=== PATIENT | male | born 1960 | race African-American/Black ===

== ENCOUNTER 2016-12-29 16:28 | Inpatient (IN) | payer MEDICAID, OTHER ==
[~2016-12-29] VITALS: Ht 182.9 cm; Wt 91.6 kg
[2016-12-29 16:31] VITALS: BP 154/104; PULSE 96; RESP 18; TEMP 98.3; O2SAT 96
--- NOTE | 2016-12-29 18:15 | PD ---
HPI Chief Complaint: Psychiatric Symptoms Time Seen by Provider: 18:06 Travel History International Travel<30 days: No Contact w/Intl Traveler<30days: No Traveled to known affect area: No History of Present Illness HPI Patient is a 56-year-old male presenting to the emergency department voluntarily for suicidal homicidal ideations. Patient states he's been depressed, he reports worsening over the last 2 weeks. Patient has attempted suicide in the past, 2 years ago with attempted overdose on pills. Patient endorses alcohol, tobacco, marijuana, cocaine. He last used marijuana and cocaine on Wednesday. He denies any physical complaints at this time. Patient reports being discharged from [facility] recently and he stated that "they didn't do anything for him". [facility] Past Medical History Depression: Yes Glaucoma: Yes Hypertension: Yes Social History Alcohol Use: Yes (he reports drinking "lots".) Tobacco Use: Yes Substance Use: Yes (marijuana and cocaine) Allergies-Medications (Allergen,Severity, Reaction): Coded Allergies: No Known Allergies (Unverified , 12/29/16) Reported Meds & Prescriptions Reported Meds & Active Scripts Active Active Prescriptions or Reported Medications Unobtainable Review of Systems Except as stated in HPI: all other systems reviewed are Neg Psychiatric: Positive: Depression, Suicidal Ideations, Substance Abuse, Homicidal Ideation Physical Exam Narrative GENERAL: Well-developed, well-nourished, gentleman. SKIN: Warm and dry. HEAD: Atraumatic. Normocephalic. EYES: Pupils equal and round. No scleral icterus. No injection or drainage. ENT: No nasal bleeding or discharge. Mucous membranes pink and moist. NECK: Trachea midline. No JVD. CARDIOVASCULAR: Regular rate and rhythm. No murmur appreciated. RESPIRATORY: No accessory muscle use. Clear to auscultation. Breath sounds equal bilaterally. GASTROINTESTINAL: Abdomen soft, non-tender, nondistended. Hepatic and splenic margins not palpable. MUSCULOSKELETAL: No obvious deformities. No clubbing. No cyanosis. No edema. NEUROLOGICAL: Awake and alert. No obvious cranial nerve deficits. Motor grossly within normal limits. Normal speech. PSYCHIATRIC: Flat mood and affect; insight and judgment normal. Data Data Last Documented VS Vital Signs Date Time Temp Pulse Resp B/P Pulse Ox O2 Delivery O2 Flow Rate FiO2 12/29/16 16:31 98.3 96 18 154/104 96 Orders Complete Blood Count With Diff (12/29/16 17:56) Comprehensive Metabolic Panel (12/29/16 17:56) Psych Screen (12/29/16 17:56) Drug Screen, Random Urine (12/29/16 17:56) Labs Laboratory Tests Test 12/29/16 12/29/16 18:10 18:20 White Blood Count 8.0 TH/MM3 Red Blood Count 5.02 MIL/MM3 Hemoglobin 14.5 GM/DL Hematocrit 43.5 % Mean Corpuscular Volume 86.6 FL Mean Corpuscular Hemoglobin 28.9 PG Mean Corpuscular Hemoglobin 33.4 % Concent Red Cell Distribution Width 15.0 % Platelet Count 254 TH/MM3 Mean Platelet Volume 8.8 FL Neutrophils (%) (Auto) 52.6 % Lymphocytes (%) (Auto) 30.7 % Monocytes (%) (Auto) 12.2 % Eosinophils (%) (Auto) 3.2 % Basophils (%) (Auto) 1.3 % Neutrophils # (Auto) 4.2 TH/MM3 Lymphocytes # (Auto) 2.4 TH/MM3 Monocytes # (Auto) 1.0 TH/MM3 Eosinophils # (Auto) 0.3 TH/MM3 Basophils # (Auto) 0.1 TH/MM3 CBC Comment DIFF FINAL Differential Comment Sodium Level 138 MEQ/L Potassium Level 4.3 MEQ/L Chloride Level 102 MEQ/L Carbon Dioxide Level 27.9 MEQ/L Anion Gap 8 MEQ/L Blood Urea Nitrogen 14 MG/DL Creatinine 1.15 MG/DL Estimat Glomerular Filtration 79 ML/MIN Rate Random Glucose 93 MG/DL Calcium Level 9.4 MG/DL Total Bilirubin 0.4 MG/DL Aspartate Amino Transf 44 U/L (AST/SGOT) Alanine Aminotransferase 54 U/L (ALT/SGPT) Alkaline Phosphatase 70 U/L Total Protein 8.8 GM/DL Albumin 4.0 GM/DL Urine Opiates Screen NEG Urine Barbiturates Screen NEG Urine Amphetamines Screen NEG Urine Benzodiazepines Screen NEG Urine Cocaine Screen POS Urine Cannabinoids Screen NEG MDM Medical Decision Making Medical Screen Exam Complete: Yes Emergency Medical Condition: Yes Interpretation(s) Vital Signs Date Time Temp Pulse Resp B/P Pulse Ox O2 Delivery O2 Flow Rate FiO2 12/29/16 16:31 98.3 96 18 154/104 96 Differential Diagnosis Mood disorder versus substance abuse versus suicidal examination versus homicidal ideations versus psychosis versus delirium versus other Narrative Course Patient is a 56-year-old male presenting to emergency him voluntarily for suicidal or homicidal ideations and worsening depression over the last 2 weeks. Review suicide attempt 2 years ago by attempting to overdose. Labs as like screen ordered and pending. Workup initiated in triage, care of patient transferred to provider when a medical bed is available. Scripts Unable to Obtain Active Prescriptions or Reported Meds Linda Denny Dec 29, 2016 18:15
[2016-12-29 18:25] LABS: AUTOMATED NEUTROPHIL # 4.2 TH/MM3 (1.8-7.7); BASOPHIL # 0.1 TH/MM3 (0-0.2); BASOPHIL % 1.3 % (0.0-2.0); EOSINOPHIL # 0.3 TH/MM3 (0-0.4); EOSINOPHIL % 3.2 % (0.0-4.0); HEMATOCRIT 43.5 % (39.0-51.0); HEMO FLAGS DIFF FINAL; LYMPH % 30.7 % (9.0-44.0); LYMPHOCYTE # 2.4 TH/MM3 (1.0-4.8); MEAN CELL VOLUME 86.6 FL (80.0-100.0); MEAN CORPUSCULAR HEMOGLOBIN 28.9 PG (27.0-34.0); MEAN CORPUSCULAR HGB CONC 33.4 % (32.0-36.0); MONO % 12.2 % (0.0-8.0); NEUT % 52.6 % (16.0-70.0); PLATELET COUNT 254 TH/MM3 (150-450); RED BLOOD COUNT 5.02 MIL/MM3 (4.50-5.90)
[2016-12-29 18:36] LABS: ANION GAP 8 MEQ/L (5-15); AST (GOT) 44 U/L (15-37); BICARBONATE 27.9 MEQ/L (21.0-32.0); BLOOD UREA NITROGEN 14 MG/DL (7-18); CHLORIDE 102 MEQ/L (98-107); GLOMERULAR FILTRATION RATE 79 ML/MIN (>89); POTASSIUM 4.3 MEQ/L (3.5-5.1); SODIUM (NA) 138 MEQ/L (136-145)
[2016-12-29 18:40] LABS: ALKALINE PHOSPHATASE 70 U/L (45-117); ALT (GPT) 54 U/L (12-78); TOTAL BILIRUBIN ADULT 0.4 MG/DL (0.2-1.0)
[2016-12-29 18:57] LABS: AMPHETAMINE, URINE NEG (NEG); BARBITURATES, URINE NEG (NEG); COCAINE, URINE POS (NEG)
--- NOTE | 2016-12-29 19:12 | PD ---
Physical Exam Date Seen by Provider: Dec 29, 2016 Data Data Last Documented VS Vital Signs Date Time Temp Pulse Resp B/P Pulse Ox O2 Delivery O2 Flow Rate FiO2 12/29/16 16:31 98.3 96 18 154/104 96 Orders Complete Blood Count With Diff (12/29/16 17:56) Comprehensive Metabolic Panel (12/29/16 17:56) Psych Screen (12/29/16 17:56) Drug Screen, Random Urine (12/29/16 17:56) Labs Laboratory Tests Test 12/29/16 12/29/16 18:10 18:20 White Blood Count 8.0 TH/MM3 Red Blood Count 5.02 MIL/MM3 Hemoglobin 14.5 GM/DL Hematocrit 43.5 % Mean Corpuscular Volume 86.6 FL Mean Corpuscular Hemoglobin 28.9 PG Mean Corpuscular Hemoglobin 33.4 % Concent Red Cell Distribution Width 15.0 % Platelet Count 254 TH/MM3 Mean Platelet Volume 8.8 FL Neutrophils (%) (Auto) 52.6 % Lymphocytes (%) (Auto) 30.7 % Monocytes (%) (Auto) 12.2 % Eosinophils (%) (Auto) 3.2 % Basophils (%) (Auto) 1.3 % Neutrophils # (Auto) 4.2 TH/MM3 Lymphocytes # (Auto) 2.4 TH/MM3 Monocytes # (Auto) 1.0 TH/MM3 Eosinophils # (Auto) 0.3 TH/MM3 Basophils # (Auto) 0.1 TH/MM3 CBC Comment DIFF FINAL Differential Comment Sodium Level 138 MEQ/L Potassium Level 4.3 MEQ/L Chloride Level 102 MEQ/L Carbon Dioxide Level 27.9 MEQ/L Anion Gap 8 MEQ/L Blood Urea Nitrogen 14 MG/DL Creatinine 1.15 MG/DL Estimat Glomerular Filtration 79 ML/MIN Rate Random Glucose 93 MG/DL Calcium Level 9.4 MG/DL Total Bilirubin 0.4 MG/DL Aspartate Amino Transf 44 U/L (AST/SGOT) Alanine Aminotransferase 54 U/L (ALT/SGPT) Alkaline Phosphatase 70 U/L Total Protein 8.8 GM/DL Albumin 4.0 GM/DL Urine Opiates Screen NEG Urine Barbiturates Screen NEG Urine Amphetamines Screen NEG Urine Benzodiazepines Screen NEG Urine Cocaine Screen POS Urine Cannabinoids Screen NEG MDM Medical Record Reviewed: Yes Supervised Visit with LENNY: Yes Interpretation(s) Vital Signs Date Time Temp Pulse Resp B/P Pulse Ox O2 Delivery O2 Flow Rate FiO2 12/29/16 16:31 98.3 96 18 154/104 96 CBC & BMP Diagram 12/29/16 18:10 Differential Diagnosis drug abuse, suicidal ideations, depression Narrative Course I, Dr. Montiel, have reviewed the advance practice practitioner's documentation and am in agreement, met with the patient face to face, made the diagnosis, and the medical decision making was done by me. *My assessment and Findings: Depression with suicidal evaluations Patient is a 56-year-old male who was brought to the emergency room for evaluation of suicidal elevations. Patient reports that he has been having symptoms for the past 2 weeks, reports that he was seen at an outside hospital as well as [facility]. Patient reports he was recently discharged with no medications. Patient reports that he still feels suicidal and needs help. Patient contracts for safety at this time. Labs obtained,, will clear patient for psychiatric evaluation Diagnosis Primary Impression: Depression Qualified Code: F32.9 - Depression, unspecified depression type Additional Impression: Drug abuse and dependence Patient Instructions: General Instructions Additional Instruction: Stop using drugs Please follow-up with your primary care doctor as soon as possible Return to emergency room as needed Scripts Unable to Obtain Active Prescriptions or Reported Meds Annabelle Montiel DO Dec 29, 2016 19:12
[2016-12-29] MEDS ORDERED: AMLO10TA2 PO (19:33)
[2016-12-29] MEDS ORDERED: LISI-515 PO (19:33)
[2016-12-30 00:48] VITALS: BP 139/95; PULSE 77; RESP 18; O2SAT 95
[2016-12-30 02:09] VITALS: BP 128/79; PULSE 71; RESP 19; TEMP 98.7; O2SAT 97
[2016-12-30 06:00] VITALS: BP 133/76; PULSE 67; RESP 19; O2SAT 96
[2016-12-30 10:10] VITALS: BP 143/99; PULSE 77; RESP 18; O2SAT 97
--- NOTE | 2016-12-30 10:46 | PD ---
History of Present Illness Chief Complaint: Psychiatric Symptoms Time Seen by Provider: 10:05 Travel History International Travel<30 Days: No Contact w/Intl Traveler<30days: No Known affected area: No Legal Status Legal Status: Voluntary History of Present Illness: History of Present Illness Patient is a 56-year-old AA male with history of alcohol abuse as well as substance induced mood disorder who presents to the emergency department voluntarily for psychiatric evaluation. He reports both suicidal homicidal ideations. He states that he has been felling increasingly depressed x2 weeks coinciding with having stopped his psychiatric medications which include Abilify and Celexa. Prior to that he was at [facility] 4 weeks ago. He has been drinking alcohol as well as using cocaine . He sates that he was at [facility] yesterday and held overnight and that " they did nothing for me. I wanted to get back on my medication". Recent stressors include being homeless x 2 weeks . EMR reviewed. He presented to [facility] in September 2016 with reports of both suicidal and homicidal ideation and was transferred to another facility for treatment of his substance abuse as well as his depression. Patient is seen in [facility]. Awake, alert and oriented x4. Patient is maintaining basic hygiene. He is diaphoretic. No tremors noted. Speech is clear and logical. No hallucinations, no delusions and no paranoia. Affect and mood are dysphoric. He is vague regarding specific symptoms and states " I have been going downhill for the past 2 weeks, isolating, sleeping a lot, shutting out everyone". Endorses feeling hopeless and helpless. He does not report suicidal plan at this time but talks about " having given up". Insight is limited. Poor judgement. Current toxicology is positive for cocaine. Endorses drinking every day. No BAL is available. [facility] Past Medical History Depression: Yes Glaucoma: Yes Hypertension: Yes Immunizations Current: Yes Tetanus Vaccination: > 5 Years Influenza Vaccination: Yes Psychiatric History Psychiatric History Hx Psychiatric Treatment: [facility] 12/28 to 2016. [facility] Nov 2016. [facility]. History of Inpatient Treatment: Yes Guns or firearms in home: No Social History Single male. Completed high school. Homeless. On disability Hx Alcohol Use: Yes (he reports drinking "lots".) Hx Tobacco Use: Yes Hx Substance Use: Yes (marijuana and cocaine) Substance Use Type: Alcohol Hx of Substance Use Treatment: Yes ([facility] in [facility] in 1999. ) Family Psychiatric History None reported. Allergies-Medications (Allergen,Severity, Reaction): Coded Allergies: No Known Allergies (Unverified , 12/29/16) Reported Meds & Prescriptions Reported Meds & Active Scripts Active Reported Amlodipine (Amlodipine Besylate) 10 Mg Tab 10 Mg PO DAILY Lisinopril 20 Mg Tab 20 Mg PO DAILY Review of Systems Except as stated in HPI: all other systems reviewed are Neg Psychiatric: COMPLAINS OF: Depression, Suicidal Ideation Exam Alert: Yes [place]: Person (ox4) Mood: Angry, Depressed Affect: Other (dysphoric) Speech: Clear, Logical Eye Contact: Indirect Memory Intact: Comment (no impairment) Hallucinations: Other (negative) Delusions: No Suicidal: Plan (no plan), Ideation Homicidal: Ideation (thoughts on admission) Insight/Judgement poor. poor MDM Medical Decision Making Medical Record Reviewed: Yes Assessment/Plan 56 year old male with history of alcohol and cocaine abuse who presents under a voluntary status for reports of both suicidal and homicidal ideation. He was released from [facility] yesterday and claims " they did nothing for me". He reports that he has been out of medication as well as drinking every day and wants treatment for both his ETOH use as well as for his psychiatric presentation. he is vague regarding symptomatology and I suspect that there is a strong component of symptom exaggeration if not malingering for the purpose of obtaining alf. Nevertheless due to the fact that he has been persistent in his presenting himself seeking treatment I will,out of caution, recommend inpatient psychiatric treatment for further evaluation, stabilization and to restart psychiatric medication. . Orders Complete Blood Count With Diff (12/29/16 17:56) Comprehensive Metabolic Panel (12/29/16 17:56) Psych Screen (12/29/16 17:56) Drug Screen, Random Urine (12/29/16 17:56) Diet Regular Basic (12/30/16 Breakfast) Diet Regular Basic (12/30/16 Lunch) Results Vital Signs Date Time Temp Pulse Resp B/P Pulse Ox O2 Delivery O2 Flow Rate FiO2 12/30/16 10:10 77 18 143/99 97 Room Air 12/30/16 06:00 67 19 133/76 96 Room Air 12/30/16 02:09 98.7 71 19 128/79 97 Room Air 12/30/16 00:48 77 18 139/95 95 Room Air 12/29/16 16:31 98.3 96 18 154/104 96 Laboratory Tests Test 12/29/16 12/29/16 18:10 18:20 White Blood Count 8.0 Red Blood Count 5.02 Hemoglobin 14.5 Hematocrit 43.5 Mean Corpuscular Volume 86.6 Mean Corpuscular Hemoglobin 28.9 Mean Corpuscular Hemoglobin 33.4 Concent Red Cell Distribution Width 15.0 Platelet Count 254 Mean Platelet Volume 8.8 Neutrophils (%) (Auto) 52.6 Lymphocytes (%) (Auto) 30.7 Monocytes (%) (Auto) 12.2 Eosinophils (%) (Auto) 3.2 Basophils (%) (Auto) 1.3 Neutrophils # (Auto) 4.2 Lymphocytes # (Auto) 2.4 Monocytes # (Auto) 1.0 Eosinophils # (Auto) 0.3 Basophils # (Auto) 0.1 CBC Comment DIFF FINAL Differential Comment Sodium Level 138 Potassium Level 4.3 Chloride Level 102 Carbon Dioxide Level 27.9 Anion Gap 8 Blood Urea Nitrogen 14 Creatinine 1.15 Estimat Glomerular Filtration 79 Rate Random Glucose 93 Calcium Level 9.4 Total Bilirubin 0.4 Aspartate Amino Transf 44 (AST/SGOT) Alanine Aminotransferase 54 (ALT/SGPT) Alkaline Phosphatase 70 Total Protein 8.8 Albumin 4.0 Urine Opiates Screen NEG Urine Barbiturates Screen NEG Urine Amphetamines Screen NEG Urine Benzodiazepines Screen NEG Urine Cocaine Screen POS Urine Cannabinoids Screen NEG Diagnosis Primary Impression: Drug abuse and dependence Additional Impression: Substance induced mood disorder Admitting Information Admitting Physician Requests: Admit (Dr. Matos) Patient Instructions: General Instructions Additional Instructions: Stop using drugs Please follow-up with your primary care doctor as soon as possible Return to emergency room as needed Problem Qualifiers Mindi Kennedy Dec 30, 2016 10:46
[2016-12-30] MEDS ORDERED: LORazepam 2 MG/ML VIAL IV PUSH PRN ×4 (11:00)
[2016-12-30] MEDS ORDERED: LORazepam 1 MG TAB PO PRN (11:00)
[2016-12-30] MEDS ORDERED: FLUMAZENIL 0.5 MG/5 ML VIAL IV PUSH PRN (11:00)
[2016-12-30] MEDS ORDERED: LORazepam 2 MG TAB PO PRN (11:00)
[2016-12-30] MEDS ORDERED: MAGNESIUM HYDROXIDE SUSP 30 ML CUP PO PRN (11:00)
[2016-12-30] MEDS ORDERED: ACETAMINOPHEN 325 MG TAB PO PRN (11:00)
[2016-12-30] MEDS ORDERED: ALUMINUM/MAGNESIUM/SIMETH 30 ML CUP PO PRN (11:00)
[2016-12-30 13:55] VITALS: BP 140/92; PULSE 69; RESP 18; TEMP 98.4
[2016-12-30 18:37] VITALS: BP 111/62; PULSE 73; RESP 18; TEMP 98.2; O2SAT 98
[2016-12-31 05:48] VITALS: BP 107/69; PULSE 81; RESP 16; TEMP 98.3; O2SAT 95
[2016-12-31 06:41] LABS: ANION GAP 8 MEQ/L (5-15); BLOOD UREA NITROGEN 10 MG/DL (7-18); CHLORIDE 102 MEQ/L (98-107); GLOMERULAR FILTRATION RATE 93 ML/MIN (>89); POTASSIUM 3.7 MEQ/L (3.5-5.1); SODIUM (NA) 139 MEQ/L (136-145)
[2016-12-31 06:43] LABS: HDL CHOLESTEROL 34.1 MG/DL (40.0-60.0); LDL CHOLESTEROL 107 MG/DL (0-99)
[2016-12-31] MEDS: LISINOPRIL 20 MG TAB PO SCH (09:00)
--- NOTE | 2016-12-31 09:18 | HHI.HP ---
Provisional Diagnosis Admission Date Dec 30, 2016 at 10:50 Alder I. History of major depression chronic recurrent with suicidal ideation. History of alcohol and substance abuse. Alder II. Passive-dependent trait Alder III. Please see the emergency room evaluation Alder IV. Moderate stress difficulty coping Alder V. GAF of 45 Certification of Person's Competence To Provide Express and Informed Consent I have personally examined Ilan De La Torre , a person being served at [facility] on, Dec 31, 2016 09:09. Express and informed consent means consent voluntarily given in writing, by a competent person, after sufficient explanation and disclosure of the subject matter involved to enable the person to make a knowing and willful decision without any element of force, fraud, deceit, duress, or other form of constraint or coercion. This person is 18 years of age or older, is not now known to be incompetent to consent to treatment with a guardian advocate, and does not have a health care surrogate or proxy currently making medical treatment decisions. I have found this person to be one of the following: [x] Competent to provide express and informed consent, as defined above, for voluntary admission to this facility and is competent to provide express and informed consent for treatment. He/she has the consistent capacity to make well reasoned, willful, and knowing decisions concerning his or her medical or mental health treatment. The person fully and consistently understands the purpose of the admission for examination/placement and is fully capable of personally exercising all rights assured [place] [] Incompetent to provide express and informed consent to voluntary admission, and this is incompetent to provide express and informed consent to treatment. The person must be transferred to involuntary status and a petition for a guardian advocate filed with the Circuit Court. [] Refusing to provide express and informed consent to voluntary admission but is competent to provide express and informed consent for treatment. The person must be discharged or transferred to involuntary status. Form shall be completed within 24 hours of a person's arrival at the receiving facility and filed in the clinical record of each person: 1. Admitted on a voluntary basis 2. Permitted to provide express and informed consent to his/her own treatment 3. Allowed to transfer from involuntary to voluntary status 4. Prior to permitting a person to consent to his or her own treatment after having been previously found incompetent to consent to treatment. History of Present Illness Capacity: Has Capacity HPI This is a 56-year-old black male who was admitted voluntarily for increasing symptoms of feeling depressed for the past 2 weeks. And having suicidal ideation. He feels isolated more depressed hopeless helpless has been sleeping awaiting to talk to anybody is also started to abuses alcohol and cocaine. Patient claimed that he has been abusing it for the past 30+ years. He denied any active auditory or visual hallucinations he stays with his nephew. No behavior or management problem reported he wants some help he has been through some drug rehabilitation Center in the past but has been having some difficulty controlling it. He came voluntarily and willing to take the medication and get some help Review of Systems Except as stated in HPI: all other systems reviewed are Neg Respiratory: COMPLAINS OF: Cough, Shortness of breath Psychiatric: COMPLAINS OF: Mood changes, Depression, Suicidal Ideation Past Psych History Psychological trauma history Patient denied any physical verbal or sexual abuse growing up Violence risk - others (6 mos) Patient denies Violence risk - self (6 mos) Patient claimed that he has been thinking about suicide for the last couple weeks but hasn't had any plan feels safe in the hospital Substance Abuse History Drugs/Alcohol past 12 months Patient admitted to abusing alcohol and cocaine for the past couple weeks Past Family Social History Coded Allergies: No Known Allergies (Unverified , 12/29/16) Reported Medications Amlodipine 10 Mg Tab10 Mg PO DAILY #30 TAB Ref 0 12/29/16 Lisinopril 20 Mg Tab20 Mg PO DAILY #30 TAB Ref 0 12/29/16 Current Medications Medications (Trade) Dose Ordered Sig/Fredis Route Start Time Stop Time Status Last Admin (Tylenol) 650 mg Q4H PRN PO 12/30/16 11:00 (Milk Of Magnesia Liq) 30 ml DAILY PRN PO 12/30/16 11:00 (Mag-Al Plus Susp Liq) 30 ml Q6H PRN PO 12/30/16 11:00 12/30/16 11:20 (Norvasc) 10 mg DAILY PO 12/31/16 09:00 (Prinivil) 20 mg DAILY PO 12/31/16 09:00 (Ativan) 1 mg Q4H PRN PO 12/30/16 11:00 (Ativan Inj) 1 mg Q4H PRN IV PUSH 12/30/16 11:00 (Ativan) 2 mg Q2H PRN PO 12/30/16 11:00 (Ativan Inj) 2 mg Q2H PRN IV PUSH 12/30/16 11:00 (Ativan Inj) 2 mg Q1H PRN IV PUSH 12/30/16 11:00 (Ativan Inj) 2 mg Q15M PRN IV PUSH 12/30/16 11:00 (Romazicon Inj) 0.2 mg Q1M PRN IV PUSH 12/30/16 11:00 Family History Positive for depression Social History Patient was born in [place]. He has 2 brothers and 3 sisters. His parents . He was close to his parents. His childhood was described as okay he denied any physical verbal or sexual abuse growing up. He did finish high school. And started to work he worked for couple of years for the [employer]. He did get into some trouble with the law and has been in [facility] several times. He admitted to alcohol and cocaine abuse for the past several years. He has been on Abilify and Celexa. But his not regular rate and outpatient follow-up been compliant in taking medication Patient's Strengths (min. 2) Patient is cooperative sign voluntary and wanted to get some help and willing to take the medication Physical Exam Please see the emergency room evaluation patient denied any physical complaints except some cough and feels like he is feeling weak we will have the LMD take a look at him his vital signs are stable Vital Signs Vital Signs Date Time Temp Pulse Resp B/P Pulse Ox O2 Delivery O2 Flow Rate FiO2 12/31/16 05:48 98.3 81 16 107/69 95 12/30/16 10:10 Room Air Mental Status Examination This is a 56-year-old black male who looks about the same as his stated age was alert oriented 2 cooperative casually dressed his speech was slow without any evidence of loose associations or flights of ideas or pressure speech his mood was described as feeling depressed and frustrated hopeless helpless and passively thinking about suicide prior to coming to the hospital and wanting some help. He also admitted to abusing alcohol and cocaine. He denied any active auditory or visual hallucinations denied any paranoia at this time he seems to be of low average intelligence with poor concentration for recent memory his insight is fair and his judgment seems to be okay on hypothetical situation his concentration is mildly impaired and his fund of knowledge is average his gait is normal his language is normal Assessment & Plan Problem List: (1) Depression ICD Code: F32.9 (2) Drug abuse and dependence ICD Code: F19.20 Assessment & Plan Estimated LOS: 5 days. This is a 56-year-old black male who was admitted voluntarily for help because he was feeling increasingly depressed hopeless helpless and suicidal willing to take the medication.. Admitted to observe evaluate and treat. We'll start him on antidepressant Wellbutrin. And continue with Abilify. He will participate in all the therapeutic activity on the floor. Request social insurance administrator to assist in aftercare and discharge planning. Side effect another alternative treatment were explained to the patient. Vital signs every shift. Request HC Surrog/Guard Advoc?: No Problem Qualifiers (1) Depression: Wilian Roldan MD Dec 31, 2016 09:18
[2016-12-31] MEDS: ARIPiprazole 5 MG TAB PO SCH ×2 (10:21→20:03)
[2016-12-31] MEDS: buPROPion HCL 150 MG SUSTAINED RELEASE TAB PO SCH ×2 (10:21→20:03)
[2016-12-31 12:24] LABS: AUTOMATED NEUTROPHIL # 2.2 TH/MM3 (1.8-7.7); BASOPHIL # 0.3 TH/MM3 (0-0.2); BASOPHIL % 4.7 % (0.0-2.0); EOSINOPHIL # 0.4 TH/MM3 (0-0.4); EOSINOPHIL % 6.1 % (0.0-4.0); HEMATOCRIT 41.8 % (39.0-51.0); HEMO FLAGS DIFF FINAL; LYMPH % 39.5 % (9.0-44.0); LYMPHOCYTE # 2.4 TH/MM3 (1.0-4.8); MEAN CORPUSCULAR HEMOGLOBIN 28.3 PG (27.0-34.0); MEAN CORPUSCULAR HGB CONC 32.5 % (32.0-36.0); MONO % 13.4 % (0.0-8.0); NEUT % 36.3 % (16.0-70.0); PLATELET COUNT 270 TH/MM3 (150-450); RED BLOOD COUNT 4.81 MIL/MM3 (4.50-5.90); RED CELL DISTRIBUTION WIDTH 15.2 % (11.6-17.2); WHITE BLOOD COUNT 6.1 TH/MM3 (4.0-11.0)
[2016-12-31 12:43] LABS: MAGNESIUM 2.2 MG/DL (1.5-2.5)
[2016-12-31 14:35] LABS: HEMOGLOBIN A1a 1.2 %; HEMOGLOBIN A1b 1.5 %; HEMOGLOBIN Ao 84.8 %; HEMOGLOBIN LA1C 1.9 %; HEMOGLOBIN P3 3.7 %
--- NOTE | 2016-12-31 15:10 | RADRPT ---
EXAM DATE/TIME: 12/31/2016 14:28 [facility] COMPARISON: No previous studies available for comparison. INDICATIONS : Cough. MEDICAL HISTORY : None. SURGICAL HISTORY : None. ENCOUNTER: Initial ACUITY: 1 day PAIN SCORE: 0/10 LOCATION: Bilateral chest FINDINGS: Portable AP view of the chest demonstrates a normal-sized cardiac silhouette. No effusion, consolidat ion, or pneumothorax is visualized. The bones and soft tissues demonstrate no acute abnormality. CONCLUSION: No acute cardiopulmonary abnormality is identified. Soham Aguilar MD on December 31, 2016 at 15:08 Board Certified Radiologist. This report was verified electronically.
[2016-12-31] MEDS ORDERED: RESP: ALBUTEROL 2.5 MG/IPRATROPIUM 0.5 MG NEB (PRN) NEB (15:30)
--- NOTE | 2016-12-31 15:41 | PD.CONS ---
HPI Service [facility] Consult Requested By Psychiatric team Reason for Consult Cough and flulike symptoms Primary Care Physician Non-Staff Diagnoses: History of Present Illness This is a 56-year-old male patient with past medical history which includes glaucoma hypertension and stomach ulcers. Patient is currently an inpatient psychiatric center we have been consulted for cough and flulike symptoms. Patient reports he's had a productive cough for approximately 4 days reports it is associated with fevers and chills although patient has been afebrile since hospitalization. Patient also reports nasal congestion. Patient denies shortness of breath chest pain nausea vomiting diarrhea constipation. Patient is also concerned that he has not been getting his eyedrops for glaucoma. Patient denies visual changes. Patient offers no other complaints at this time. Review of Systems Except as stated in HPI: all other systems reviewed are Neg Past Family Social History Allergies: Coded Allergies: No Known Allergies (Unverified , 12/29/16) Past Medical History glaucoma hypertension and stomach ulcers Past Surgical History Index trigger finger right hand partially amputated Reported Medications Amlodipine (Amlodipine Besylate) 10 Mg Tab 10 Mg PO DAILY Lisinopril 20 Mg Tab 20 Mg PO DAILY DorzolamideTemodal one drop each eye twice a day Active Ordered Medications Current Medications Medications (Trade) Dose Ordered Sig/Fredis Route Start Time Stop Time Status Last Admin (Tylenol) 650 mg Q4H PRN PO 12/30/16 11:00 12/31/16 10:03 (Milk Of Magnesia Liq) 30 ml DAILY PRN PO 12/30/16 11:00 (Mag-Al Plus Susp Liq) 30 ml Q6H PRN PO 12/30/16 11:00 12/30/16 11:20 (Norvasc) 10 mg DAILY PO 12/31/16 09:00 (Prinivil) 20 mg DAILY PO 12/31/16 09:00 (Ativan) 1 mg Q4H PRN PO 12/30/16 11:00 12/31/16 10:11 (Ativan Inj) 1 mg Q4H PRN IV PUSH 12/30/16 11:00 (Ativan) 2 mg Q2H PRN PO 12/30/16 11:00 (Ativan Inj) 2 mg Q2H PRN IV PUSH 12/30/16 11:00 (Ativan Inj) 2 mg Q1H PRN IV PUSH 12/30/16 11:00 (Ativan Inj) 2 mg Q15M PRN IV PUSH 12/30/16 11:00 (Romazicon Inj) 0.2 mg Q1M PRN IV PUSH 12/30/16 11:00 (Wellbutrin Sr) 150 mg BID PO 12/31/16 09:30 12/31/16 10:21 (Abilify) 5 mg BID PO 12/31/16 09:30 12/31/16 10:21 (Lipitor) 10 mg HS PO 12/31/16 21:00 Family History Denies family medical history for diabetes hypertension heart disease or cancer Social History Patient reports he drinks," lots," daily mostly beer patient's last drink was 12/25/2016 Patient reports he smokes 5-6 cigarettes per day Urine toxicology screen on admission positive for cocaine Physical Exam Vital Signs Vital Signs Date Time Temp Pulse Resp B/P Pulse Ox O2 Delivery O2 Flow Rate FiO2 12/31/16 05:48 98.3 81 16 107/69 95 12/30/16 18:37 98.2 73 18 111/62 98 Physical Exam GENERAL: This is a well-nourished, well-developed patient, in no apparent distress. SKIN: No rashes, ecchymoses or lesions. Cool and dry. HEAD: Atraumatic. Normocephalic. No temporal or scalp tenderness. EYES: Extraocular motions intact. No scleral icterus. No injection or drainage. CARDIOVASCULAR: Regular rate and rhythm without murmurs, gallops, or rubs. RESPIRATORY: Clear to auscultation. Breath sounds equal bilaterally. No wheezes , rales, or rhonchi. GASTROINTESTINAL: Abdomen soft, non-tender, nondistended. MUSCULOSKELETAL: Extremities without clubbing, cyanosis, or edema. No joint tenderness, effusion, or edema noted. No calf tenderness. Negative Homans sign bilaterally. NEUROLOGICAL: Awake and alert. No focal deficits appreciated. Motor and sensory grossly within normal limits. Five out of 5 muscle strength in all muscle groups. Normal speech. No visual tremors Laboratory Laboratory Tests Test 12/31/16 05:28 White Blood Count 6.1 Red Blood Count 4.81 Hemoglobin 13.6 Hematocrit 41.8 Mean Corpuscular Volume 87.0 Mean Corpuscular Hemoglobin 28.3 Mean Corpuscular Hemoglobin 32.5 Concent Red Cell Distribution Width 15.2 Platelet Count 270 Mean Platelet Volume 8.8 Neutrophils (%) (Auto) 36.3 Lymphocytes (%) (Auto) 39.5 Monocytes (%) (Auto) 13.4 Eosinophils (%) (Auto) 6.1 Basophils (%) (Auto) 4.7 Neutrophils # (Auto) 2.2 Lymphocytes # (Auto) 2.4 Monocytes # (Auto) 0.8 Eosinophils # (Auto) 0.4 Basophils # (Auto) 0.3 CBC Comment DIFF FINAL Differential Comment Sodium Level 139 Potassium Level 3.7 Chloride Level 102 Carbon Dioxide Level 29.0 Anion Gap 8 Blood Urea Nitrogen 10 Creatinine 1.00 Estimat Glomerular Filtration 93 Rate Random Glucose 91 Hemoglobin A1c 5.8 Calcium Level 8.8 Phosphorus Level 3.1 Magnesium Level 2.2 Triglycerides Level 163 Cholesterol Level 174 LDL Cholesterol 107 HDL Cholesterol 34.1 Cholesterol/HDL Ratio 5.10 Result Diagram: 12/31/16 0528 12/31/16 0528 Assessment and Plan Assessment and Plan This is a 56-year-old male patient with past medical history which includes glaucoma hypertension and stomach ulcers. Patient is currently an inpatient psychiatric center we have been consulted for cough and flulike symptoms. Patient reports he's had a productive cough for approximately 4 days. Depression management per psychiatric team Polysubstance abuse patient counseled- encourage to abstain Nicotine patch provided [facility] protocol Cough chest x-ray reviewed by myself as well as Dr. Levine reveals no acute cardiopulmonary process Sputum culture if patient able Influenza test ordered Roxi Corey-patient reports he has taken Robitussin the past and this upsets his stomach Duo nebs as needed for shortness of breath or wheezing CBC rechecked white blood cell count 6.7-patient has also been afebrile since admission Hypertension continue lisinopril and Norvasc monitor for hypotension may need to titrate down medications Glaucoma continue dorzolamide-timolol 1 drop each eye daily Recommend patient follow-up with outpatient ophthalmology after discharge Hyperlipidemia patient's ASCVD score 16% start Lipitor 10 mg - patient will need outpatient follow-up with PCP for monitoring of liver function as well as lipids DVT prophylaxis patient is ambulatory and low risk Thank you for the consultation and for allowing us to participate in the care of this patient Discussed plan of care with patient and nursing Written by Sandra Zavala, acting as scribe for Dr. Levine on 12/31/16 at 15:39. Attending Statement All or portions of this note were transcribed by scribe Sandra Zavala. I , Dr. Julian Mann personally performed the history, physical exam, and medical decision making; and confirmed the accuracy of the information in the transcribed note. Authenticated by Dr. Julian Mann on 01/04/17 at 00:08. Sadnra Zavala Dec 31, 2016 15:40 Julian Gibbs MD Jan 04, 2017 00:09
[2016-12-31] MEDS ORDERED: LORazepam 2 MG TAB PO PRN (19:00)
[2016-12-31] MEDS ORDERED: FLUMAZENIL 0.5 MG/5 ML VIAL IV PUSH PRN (19:00)
[2016-12-31] MEDS ORDERED: LORazepam 1 MG TAB PO PRN (19:00)
[2016-12-31] MEDS ORDERED: LORazepam 2 MG/ML VIAL IV PUSH PRN ×4 (19:00)
[2016-12-31] MEDS: ATORVASTATIN 10 MG TAB PO SCH (20:03)
[2016-12-31] MEDS: DORZOLAMIDE/TIMOLOL OPTH SOLN 10 ML BTL EACH EYE SCH (20:03)
[2016-12-31 20:04] VITALS: BP 107/69; PULSE 83; RESP 16; TEMP 97.1; O2SAT 95
[2016-12-31] MEDS: BENZONATATE 100 MG CAP PO PRN (20:04)
[2017-01-01 05:38] VITALS: BP 126/78; PULSE 63; RESP 18; TEMP 98.1; O2SAT 97
[2017-01-01] MEDS: DORZOLAMIDE/TIMOLOL OPTH SOLN 10 ML BTL EACH EYE SCH ×2 (09:00→20:40)
[2017-01-01] MEDS: THIAMINE HCL 100 MG TAB PO SCH (09:36)
[2017-01-01] MEDS: buPROPion HCL 150 MG SUSTAINED RELEASE TAB PO SCH ×2 (09:36→20:40)
[2017-01-01] MEDS: FOLIC ACID 1 MG TAB PO SCH (09:36)
[2017-01-01] MEDS: LISINOPRIL 20 MG TAB PO SCH (09:36)
[2017-01-01] MEDS: ARIPiprazole 5 MG TAB PO SCH ×2 (09:36→20:40)
--- NOTE | 2017-01-01 10:16 | HHI.PYPN ---
Subjective Remarks Patient was seen and discussed with the residential treatment staff. Patient claimed that he has not been feeling well and tends to isolate himself and keeps to himself. He was encouraged to participate in all the therapeutic activity on the floor. He also complains of having cough. No behavior or management problem reported. Denied any active suicidal ideation intentions or plan. No side effects were complained from the medication. Continue with the same treatment Review of Systems Except as stated in HPI: all other systems reviewed are Neg Psychiatric: COMPLAINS OF: Mood changes, Depression Objective Alert: Yes [place]: Person (ox4) Mood: Anxious, Depressed, Other (feels frustrated) Affect: Other (dysphoric) Memory Intact: Comment (no impairment) Hallucinations: Other (negative) Delusions: No Delusion Type: Other Suicidal: Plan (no plan), Ideation (patient denies any suicidal ideation intentions or plan) Homicidal: Ideation (denies at this time) Insight/Judgement Fair to limited Vitals/IOs Vital Signs Date Time Temp Pulse Resp B/P Pulse Ox O2 Delivery O2 Flow Rate FiO2 01/01/17 05:38 98.1 63 18 126/78 97 12/30/16 10:10 Room Air Assessment & Plan Problem List: (1) Depression ICD Code: F32.9 (2) Drug abuse and dependence ICD Code: F19.20 Assessment & Plan Estimated LOS: days Justification for Cont. Inpt. Monitoring of the medication and risk of decompensation Request HC Surrog/Guard Advoc?: No Problem Qualifiers (1) Depression: Wilian Roldan MD Jan 01, 2017 10:16
[2017-01-01 18:31] VITALS: BP 107/72; PULSE 73; RESP 18; TEMP 98.2; O2SAT 95
[2017-01-01] MEDS: ATORVASTATIN 10 MG TAB PO SCH (20:40)
[2017-01-02 06:09] VITALS: BP 113/73; PULSE 94; RESP 18; TEMP 98.2; O2SAT 97
[2017-01-02] MEDS: FOLIC ACID 1 MG TAB PO SCH (09:17)
[2017-01-02] MEDS: THIAMINE HCL 100 MG TAB PO SCH (09:17)
[2017-01-02] MEDS: buPROPion HCL 150 MG SUSTAINED RELEASE TAB PO SCH ×2 (09:17→20:51)
[2017-01-02] MEDS: ARIPiprazole 5 MG TAB PO SCH ×2 (09:17→20:51)
[2017-01-02] MEDS: LISINOPRIL 20 MG TAB PO SCH (09:17)
[2017-01-02] MEDS: DORZOLAMIDE/TIMOLOL OPTH SOLN 10 ML BTL EACH EYE SCH ×2 (09:18→20:50)
--- NOTE | 2017-01-02 12:37 | HHI.PYPN ---
Subjective Remarks Patient was seen and case discussed with nursing. Patient describes depressed mood and affect is blunted. Describes suicidal thoughts saying I would be better off . Denies any intent or plan. Poor insight. Minimizing his drug use. He is eating well, largely seclusive to self. Denies psychotic symptoms Objective Alert: Yes [place]: Person (ox4), Place Mood: Depressed Affect: Blunted Memory Intact: Comment (no impairment) Hallucinations: Other (negative) Delusions: No Delusion Type: Other Suicidal: Plan (no plan), Ideation (patient denies any suicidal ideation intentions or plan) Homicidal: Ideation (denies at this time) Insight/Judgement Poor Vitals/IOs Vital Signs Date Time Temp Pulse Resp B/P Pulse Ox O2 Delivery O2 Flow Rate FiO2 01/02/17 06:09 98.2 94 18 113/73 97 12/30/16 10:10 Room Air Assessment & Plan Problem List: (1) Depression ICD Code: F32.9 (2) Drug abuse and dependence ICD Code: F19.20 Assessment & Plan Continue current treatment plan Justification for Cont. Inpt. Patient will decompensate in a less restrictive setting Request HC Surrog/Guard Advoc?: No Problem Qualifiers (1) Depression: Varun Meyer DO Jan 02, 2017 12:37
--- NOTE | 2017-01-02 14:36 | HHI.PR ---
Subjective Remarks Follow-up: Cough, hypertension, hyperlipidemia Patient seen resting in bed in inpatient psychiatric center. Patient appears to be in no acute distress. Patient reports he continues to have cough which is not as bad as it was prior denies fevers chills nausea vomiting diarrhea constipation. Objective Vitals Vital Signs Date Time Temp Pulse Resp B/P Pulse Ox O2 Delivery O2 Flow Rate FiO2 01/02/17 06:09 98.2 94 18 113/73 97 01/01/17 18:31 98.2 73 18 107/72 95 Result Diagram: 12/31/16 0528 12/31/16 0528 Imaging Last Impressions Chest X-Ray 12/31/16 0000 Signed Impressions: Service Date/Time: December 14:28 - CONCLUSION: No acute cardiopulmonary abnormality is identified. Soham Aguilar MD Objective Remarks GENERAL: This is a well-nourished, well-developed patient, in no apparent distress. SKIN: No rashes, ecchymoses or lesions. Cool and dry. HEAD: Atraumatic. Normocephalic. No temporal or scalp tenderness. EYES: Extraocular motions intact. No scleral icterus. No injection or drainage. CARDIOVASCULAR: Regular rate and rhythm without murmurs, gallops, or rubs. RESPIRATORY: Clear to auscultation. Breath sounds equal bilaterally. No wheezes , rales, or rhonchi. GASTROINTESTINAL: Abdomen soft, non-tender, nondistended. MUSCULOSKELETAL: Extremities without clubbing, cyanosis, or edema. No joint tenderness, effusion, or edema noted. No calf tenderness. Negative Homans sign bilaterally. NEUROLOGICAL: Awake and alert. No focal deficits appreciated. Motor and sensory grossly within normal limits. Five out of 5 muscle strength in all muscle groups. Normal speech. No visual tremors A/P Assessment and Plan This is a 56-year-old male patient with past medical history which includes glaucoma hypertension and stomach ulcers. Patient is currently an inpatient psychiatric center we have been consulted for cough and flulike symptoms. Patient reports he's had a productive cough for approximately 4 days. Depression management per psychiatric team Polysubstance abuse patient counseled- encourage to abstain Nicotine patch provided [facility] protocol Cough chest x-ray reviewed by myself as well as Dr. Levine reveals no acute cardiopulmonary process Sputum culture if patient able Influenza test ordered Roxi Corey-patient reports he has taken Robitussin the past and this upsets his stomach Lozenges as needed Duo nebs as needed for shortness of breath or wheezing CBC rechecked white blood cell count 6.7- afebrile Hypertension continue lisinopril and Norvasc monitor for hypotension may need to titrate down medications Glaucoma continue dorzolamide-timolol 1 drop each eye daily Recommend patient follow-up with outpatient ophthalmology after discharge Hyperlipidemia patient's ASCVD score 16% Lipitor 10 mg - patient will need outpatient follow-up with PCP for monitoring of liver function as well as lipids DVT prophylaxis patient is ambulatory and low risk Patient appears medically stable will sign off. Patient's condition changes or further assistance is needed please reconsult. Discussed plan of care with patient and nursing Written by Sandra Perkins, acting as scribe for Dr. Levine on 01/02/17 at 14:36. Attending Statement All or portions of this note were transcribed by scribe Sandra perkins. I, Dr. Julian Mann personally performed the history, physical exam, and medical decision making; and confirmed the accuracy of the information in the transcribed note. Authenticated by Dr. Julian Mann on 01/02/17 at 15:30. Sandra Perkins Jan 02, 2017 14:36 Julian Gibbs MD Jan 12, 2017 13:13
[2017-01-02] MEDS ORDERED: MENTHOL LOZENGE BUCCAL PRN (16:00)
[2017-01-02 18:00] VITALS: PULSE 56; RESP 18; TEMP 98.7; O2SAT 97
[2017-01-02] MEDS: ATORVASTATIN 10 MG TAB PO SCH (20:51)
[2017-01-02] MEDS: BENZONATATE 100 MG CAP PO PRN (21:13)
[2017-01-03 06:31] VITALS: BP 115/76; PULSE 60; RESP 18; TEMP 98.3; O2SAT 99
[2017-01-03] MEDS: DORZOLAMIDE/TIMOLOL OPTH SOLN 10 ML BTL EACH EYE SCH ×2 (09:00→20:53)
[2017-01-03] MEDS: amLODIPine BESYLATE 5 MG TAB PO SCH (09:46)
[2017-01-03] MEDS: LISINOPRIL 10 MG TAB PO SCH (09:46)
[2017-01-03] MEDS: ARIPiprazole 5 MG TAB PO SCH ×2 (09:46→20:53)
[2017-01-03] MEDS: THIAMINE HCL 100 MG TAB PO SCH (09:46)
[2017-01-03] MEDS: buPROPion HCL 150 MG SUSTAINED RELEASE TAB PO SCH ×2 (09:46→20:53)
[2017-01-03] MEDS: FOLIC ACID 1 MG TAB PO SCH (09:46)
--- NOTE | 2017-01-03 14:47 | HHI.PYPN ---
Subjective Remarks Patient was seen and case discussed with nursing. Patient says he is coughing a black phlegm. Asking for cold medications. Affect remains blunted and apathetic. Patient remains depressed and endorses suicidal ideation the possible plan of overdosing on his medications. Denies psychosis. Largely seclusive to self Objective Alert: Yes [place]: Person (ox4), Place, Date Mood: Depressed Affect: Flat, Blunted Memory Intact: Comment (no impairment) Hallucinations: Other (negative) Delusions: No Delusion Type: Other Suicidal: Plan (overdose), Ideation (suicidal ideation) Homicidal: Ideation (denies at this time) Insight/Judgement Fair Vitals/IOs Vital Signs Date Time Temp Pulse Resp B/P Pulse Ox O2 Delivery O2 Flow Rate FiO2 01/03/17 06:31 98.3 60 18 115/76 99 12/30/16 10:10 Room Air Assessment & Plan Problem List: (1) Depression ICD Code: F32.9 (2) Drug abuse and dependence ICD Code: F19.20 Assessment & Plan Consult medicine, continue current treatment plan, cough drops per request Justification for Cont. Inpt. Patient will decompensate in a less restrictive setting Request HC Surrog/Guard Advoc?: No Problem Qualifiers (1) Depression: Varun Meyer DO Jan 03, 2017 14:47
[2017-01-03] MEDS: BENZONATATE 100 MG CAP PO PRN ×2 (16:22→20:53)
[2017-01-03] MEDS ORDERED: guaiFENesin E.R. 600 MG TAB PO ONE (16:45)
--- NOTE | 2017-01-03 16:50 | PD.CONS ---
[facility] Service [facility] Consult Requested By dictated. [id number] Reason for Consult medical management cough, sinsusitis Primary Care Physician Non-Staff Diagnoses: Past Family Social History Allergies: Coded Allergies: No Known Allergies (Unverified , 12/29/16) Physical Exam Vital Signs Vital Signs Date Time Temp Pulse Resp B/P Pulse Ox O2 Delivery O2 Flow Rate FiO2 01/03/17 06:31 98.3 60 18 115/76 99 01/02/17 18:00 98.7 56 18 97 Result Diagram: 12/31/16 0528 12/31/16 0528 Su Linn Jan 03, 2017 16:50
[2017-01-03 18:05] VITALS: BP 142/97; PULSE 66; RESP 18; TEMP 98.1; O2SAT 99
[2017-01-03] MEDS: MENTHOL LOZENGE BUCCAL PRN (20:53)
[2017-01-03] MEDS: ATORVASTATIN 10 MG TAB PO SCH (20:53)
[2017-01-03] MEDS: AMOXICILLIN/CLAVULANATE K 500 MG TAB PO SCH (20:56)
[2017-01-04 05:10] VITALS: BP 108/74; PULSE 62; RESP 18; TEMP 98.6; O2SAT 97
[2017-01-04] MEDS: LISINOPRIL 10 MG TAB PO SCH (09:00)
[2017-01-04] MEDS: amLODIPine BESYLATE 5 MG TAB PO SCH (09:00)
[2017-01-04] MEDS: DORZOLAMIDE/TIMOLOL OPTH SOLN 10 ML BTL EACH EYE SCH ×2 (09:00→20:35)
[2017-01-04] MEDS: THIAMINE HCL 100 MG TAB PO SCH (09:32)
[2017-01-04] MEDS: MENTHOL LOZENGE BUCCAL PRN ×4 (09:32→20:34)
[2017-01-04] MEDS: AMOXICILLIN/CLAVULANATE K 500 MG TAB PO SCH ×2 (09:32→20:35)
[2017-01-04] MEDS: FOLIC ACID 1 MG TAB PO SCH (09:32)
[2017-01-04] MEDS: ARIPiprazole 5 MG TAB PO SCH ×2 (09:32→20:35)
[2017-01-04] MEDS: buPROPion HCL 150 MG SUSTAINED RELEASE TAB PO SCH ×2 (09:32→20:35)
--- NOTE | 2017-01-04 10:38 | MB ---
DATE OF CONSULTATION: 01/03/2017 REASON FOR CONSULTATION: Medical management and cough. HISTORY OF PRESENT ILLNESS: This is a 58-year-old black male who according to the record and him, the patient voluntarily came into the emergency room asking for help. He states that for the past few weeks he has been very depressed and had decided that he would commit suicide but just did not have a plan yet. The patient is a long-time drug and alcohol user and does admit to using cocaine within the past week. The patient was recently discharged from [facility] but states that they did not do anything for him and he still feels like he wants to hurt himself. Currently the patient is in the psychiatric unit. We have been consulted for any of his medical management needs. The patient states that he has been complaining of a cough for the past week. He is hoarse-sounding and congested. He states the congestion is increased at night when he lies down sleep. He states that he also has coughed up some thick green mucus and sputum which has streaks of black in it. The patient denies any chest pain. No shortness of breath. Denies any nausea or vomiting, diarrhea or constipation. He does have multiple medical comorbidities which include hypertension, depression and glaucoma. He is currently a cigarette smoker. The patient does admit to some weight loss over the past couple weeks because of not eating. He states that it averaged approximately seven to eight pounds. He is alert, quiet affect but does answer questions appropriately and seems to be a fair historian. PAST MEDICAL HISTORY: His medical history includes: 1. Depression. 2. Glaucoma. 3. Hypertension. 4. Tobacco abuser. 5. Ethyl alcohol abuser. 6. Illicit drug use with cocaine. 7. Cough. 8. 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 PAST SURGICAL HISTORY: Partial amputation of the right first finger. ALLERGIES: No known MEDICATIONS REPORTED: None. SOCIAL HISTORY: Positive for tobacco use right now five to six cigarettes a day for the past 45 years. Positive for EtOH abuse. Positive for recent marijuana and cocaine use. FAMILY HISTORY: Hypertension and cancer. REVIEW OF SYSTEMS: A 10-point review was obtained. Positives noted are his psychiatric issues plus cough. Positive thick colored sputum. Nasal congestion. PHYSICAL EXAMINATION: VITAL SIGNS: Temperature is 98.3, pulse 60, respirations 18, blood pressure 115/76, O2 sat 99 on room air. GENERAL: Slim but well-nourished, well-developed black male looks to be his stated age sitting up in the chair in the day room. SKIN: [place] mucous membranes warm and dry. HEAD, EYES, EARS, NOSE, THROAT: Atraumatic, normocephalic. Left eye 2 mm. Right eye and right side of his face has some edema. Mucous membranes are moist. Mild erythema noted at the nares. Tongue is midline and moist. NECK: Neck is supple. CARDIOVASCULAR: S1 and S2 regular rate and rhythm. No murmurs, rubs or gallops. PULMONARY: Essentially clear anteriorly and posteriorly. He may have some mild diminished sounds but no rales, rhonchi or wheezes. ABDOMEN: Flat, soft, nontender, nondistended. Active bowel sounds in all four quads. MUSCULOSKELETAL: He moves his extremities with purpose. He can overcome resistance. NEUROLOGIC: He is alert, flat affect, a fairly good historian. No obvious cranial nerve deficits. PSYCHIATRIC: Flat affect, clear speech. Able to follow conversation. Fair judgment. DIAGNOSTIC DATA: WBC count 6.1 on 12/31/2016, hemoglobin 13.6, hematocrit 41.8, platelet count is 270,000, monocyte auto 13.4, eosinophils 6.1, basophils 4.7. Chemistry: Sodium on 12/31/2016: Sodium 139, potassium 3.7, chloride 102, carbon dioxide 29, anion gap 8, BUN 10, creatinine 1, GFR 93, random glucose 91, hemoglobin A1c 5.8, calcium 8.8, phosphorus 3.1, mag 2.2. Triglycerides 163, cholesterol 174, LDL 107, HDL 34.1. Toxicology showed positive cocaine. IMAGING STUDIES: Chest x-ray shows no acute cardiopulmonary abnormality. ASSESSMENT: 1. Sinusitis. 2. Nasal congestion. 3. Hypertension. 4. Cough. 5. Hyperlipidemia. PLAN: 1. Our plan is to monitor any labs and vital signs related to any of his comorbidities. 2. Start him on Augmentin 500 mg every 12 hours. 3. Will give him one dose of guaifenesin. 4. The patient already has menthol lozenges ordered for cough. 5. I have ordered for him to have one of those right now and he can have those every 2 hours as needed. 6. The patient is already on Lipitor for his hyperlipidemia. 7. The patient is also on Prinivil and Norvasc. 8. DuoNeb q. 4 p.r.n. for wheezing. We will follow as needed for any of his other medical needs. Thank you very much for the consult. Dictated by RADHA Rubio Patient was seen and examined by me. above a/P was discussed with pipe. Thank you Dr. Meyer for the consult. Will follow patient as needed. Nica Lopez MD [facility]
--- NOTE | 2017-01-04 14:22 | HHI.PYPN ---
Subjective Remarks Patient seen and examined with nurse, Annabelle. Chart reviewed. Case discussed with nursing staff who reports that the patient is quiet and no behavioral problems. On my examination today, I find the patient laying in bed reading a book. He is an extremely vague historian. He reports that he feels improved versus admission with respect to his mood, but he stresses he is not completely well in this regard. When I ask what remaining symptoms he feels need to be treated during this hospital stay, he says, "feeling negative about life in general." He struggles to provide more concrete symptomatology. He denies SI or HI. He does admit to 2 prior SA by OD. Denies side effects from psychotropics and is not interested in further med adjustments at this time. He ultimately wants to get into drug rehab but has been denied at several facilities like [facility] and [facility] for various reasons. Review of Systems Other No physical complaints today. Objective Alert: Yes [place]: Person, Place, Date, Situation Mood: Depressed (reportedly improving) Affect: Blunted Memory Intact: Comment (Intact on clinical exam) Hallucinations: Other (No AVH) Delusions: No Delusion Type: Other (No delusions) Suicidal: Ideation (Denies SI) Homicidal: Ideation (Denies HI) Insight/Judgement Fair Remarks TP linear. Speech wnl for rate, tone, volume. No motor abnormalities noted. Grooming and hygiene good. No signs of withdrawal noted. No recent Ativan required per CIWA. Labs Labs reviewed. No new labs. Vitals/IOs Vital Signs Date Time Temp Pulse Resp B/P Pulse Ox O2 Delivery O2 Flow Rate FiO2 01/04/17 05:10 98.6 62 18 108/74 97 Assessment & Plan Problem List: (1) Adjustment disorder Assessment & Plan: Suspect drug-induced mood disorder ICD Code: F43.20 (2) Drug abuse and dependence ICD Code: F19.20 Assessment & Plan Patient was apparently recently discharged from another inpatient psychiatric unit and is presently homeless. I concur with nurse practitioner Brent that the patient is likely exaggerating or outright malingering his symptoms for intermediate. What psychiatric symptomatology he genuinely does have is likely substance induced, at least here acutely. I will continue patient's Abilify and Wellbutrin as ordered, and the patient does not wish any further psychotropic medication adjustments. Continue other medications and care as ordered. Justification for Cont. Inpt. Monitoring for any impairments in safety. So far no evidence of any self-harm or violence on the unit. Discharge Planning I have asked that counselor tapper supervisor to try to work with the patient to get into some sort of drug rehabilitation program as he does have a payer source that might support this. However he reports that he has not had much luck in the past with getting into rehabilitation programs for various reasons and so it is not clear that this is a viable option. Anticipate discharge within the next 2-3 days. Request HC Surrog/Guard Advoc?: No Problem Qualifiers (1) Adjustment disorder: Qualified Code: F43.21 - Adjustment disorder with depressed mood Jose Cowart MD Jan 04, 2017 14:22
[2017-01-04 16:45] VITALS: BP 117/78; PULSE 58; RESP 18; TEMP 98.6; O2SAT 99
[2017-01-04] MEDS: ATORVASTATIN 10 MG TAB PO SCH (20:35)
[2017-01-05 05:46] VITALS: BP 107/66; PULSE 59; RESP 18; TEMP 98.6; O2SAT 96
[2017-01-05] MEDS: ARIPiprazole 5 MG TAB PO SCH ×2 (08:39→08:42)
[2017-01-05] MEDS: LISINOPRIL 10 MG TAB PO SCH ×2 (08:39→08:42)
[2017-01-05] MEDS: THIAMINE HCL 100 MG TAB PO SCH ×2 (08:39→08:42)
[2017-01-05] MEDS: FOLIC ACID 1 MG TAB PO SCH ×2 (08:39→08:42)
[2017-01-05] MEDS: AMOXICILLIN/CLAVULANATE K 500 MG TAB PO SCH ×2 (08:39→08:42)
[2017-01-05] MEDS: buPROPion HCL 150 MG SUSTAINED RELEASE TAB PO SCH ×2 (08:40→08:42)
[2017-01-05] MEDS: DORZOLAMIDE/TIMOLOL OPTH SOLN 10 ML BTL EACH EYE SCH ×2 (08:41→20:35)
[2017-01-05] MEDS: amLODIPine BESYLATE 5 MG TAB PO SCH (08:43)
[2017-01-05] MEDS: MENTHOL LOZENGE BUCCAL PRN ×2 (10:32→20:35)
--- NOTE | 2017-01-05 14:07 | HHI.PYPN ---
Subjective Remarks Patient seen and examined with counselor and nurse. Chart reviewed. Case discussed with counselor and nurse in treatment team. Per nursing staff, no behavioral problem, no evidence of any suicidality on the unit. Per counselor, patient apparently just recently left the dual diagnosis program last month. On my examination today, the patient denies any suicidal or homicidal ideation. He presents as a little dysphoric but not really depressed. When counselor discusses with him the difficulties in getting him into a rehabilitation program given that he recently left a dual diagnosis program and given his other troubles with getting into rehabilitation and alternatively suggests ambulatory treatment through [facility], the patient declines any additional resources for this. Denies side effects from medications. Says that he has a call out to a homeless senior care this afternoon for possible placement there as he does not wish to return home to his family member. Review of Systems Other No physical complaints today Objective Alert: Yes [place]: Person, Place, Date, Situation Mood: Other (mildly dysphoric) Affect: Blunted Memory Intact: Comment (remains intact) Hallucinations: Other (No AVH) Delusions: No Delusion Type: Other (no delusions elicited) Suicidal: Ideation (denies suicidal ideation) Homicidal: Ideation (denies homicidal ideation) Insight/Judgement Fair Remarks Thought process linear. No abnormal motor movements noted. Labs Labs reviewed. No new labs. Vitals/IOs Vital Signs Date Time Temp Pulse Resp B/P Pulse Ox O2 Delivery O2 Flow Rate FiO2 01/05/17 05:46 98.6 59 18 107/66 96 Assessment & Plan Problem List: (1) Adjustment disorder ICD Code: F43.20 (2) Drug abuse and dependence ICD Code: F19.20 Assessment & Plan Continue current psychotropics as ordered. Patient is not interested in further medication adjustments, nor is it clear that any are indicated at this juncture. Continue other medications and care as ordered. Justification for Cont. Inpt. Monitoring for any impairments in safety, none noted. Discharge Planning Monitor overnight. Anticipate discharge tomorrow. Request HC Surrog/Guard Advoc?: No Problem Qualifiers (1) Adjustment disorder: Qualified Code: F43.21 - Adjustment disorder with depressed mood Jose Cowart MD Jan 05, 2017 14:07
[2017-01-05] MEDS: ATORVASTATIN 10 MG TAB PO SCH (20:35)
[2017-01-05 21:56] VITALS: BP 123/71; PULSE 59; TEMP 97.8
[2017-01-06 06:00] VITALS: BP 108/73; PULSE 59; RESP 18; TEMP 97.8; O2SAT 96
[2017-01-06] MEDS: DORZOLAMIDE/TIMOLOL OPTH SOLN 10 ML BTL EACH EYE SCH (08:42)
[2017-01-06] MEDS: amLODIPine BESYLATE 5 MG TAB PO SCH (08:42)
[2017-01-06] MEDS: THIAMINE HCL 100 MG TAB PO SCH (08:42)
[2017-01-06] MEDS: LISINOPRIL 10 MG TAB PO SCH (08:42)
[2017-01-06] MEDS: ARIPiprazole 5 MG TAB PO SCH (08:42)
[2017-01-06] MEDS: buPROPion HCL 150 MG SUSTAINED RELEASE TAB PO SCH (08:42)
[2017-01-06] MEDS: AMOXICILLIN/CLAVULANATE K 500 MG TAB PO SCH (08:42)
[2017-01-06] MEDS ORDERED: LIPI10TA PO (12:18)
[2017-01-06] MEDS ORDERED: AUGM500T7 PO (12:18)
[2017-01-06] MEDS ORDERED: ARIP1TAB11 PO (12:18)
[2017-01-06] MEDS ORDERED: BUPR150CR PO (12:18)
[2017-01-06] MEDS ORDERED: DORZ2SOL7 EACH EYE (12:18)
[2017-01-06] MEDS ORDERED: LISI10TA3 PO (12:18)
[2017-01-06] MEDS ORDERED: AMLO5 PO (12:18)
--- NOTE | 2017-01-06 12:18 | HHI.DS ---
Psychiatry Discharge Summary Inpatient Psychiatric care?: Yes Advance Directive: No Reason Not Provided: Due to Patient Condition Mental Health AdvanceDirective: No Health Care Proxy: No Admission Admission Date Dec 30, 2016 at 10:50 Admission Diagnosis: (1) Depression ICD Code: F32.9 (2) Drug abuse and dependence ICD Code: F19.20 Brief History This is a 56-year-old black male who was admitted voluntarily for increasing symptoms of feeling depressed for the past 2 weeks. And having suicidal ideation. He feels isolated more depressed hopeless helpless has been sleeping awaiting to talk to anybody is also started to abuses alcohol and cocaine. Patient claimed that he has been abusing it for the past 30+ years. He denied any active auditory or visual hallucinations he stays with his nephew. No behavior or management problem reported he wants some help he has been through some drug rehabilitation Center in the past but has been having some difficulty controlling it. He came voluntarily and willing to take the medication and get some help Tobacco Use In Past 30 Days: 5 or More Cigarettes/Day Alcohol Use: 4 or More Times Per Week Hospital Course Patient was admitted to a locked, inpatient psychiatric unit. Appropriate precautions were in place throughout patient's hospital stay. A general medical consultation was obtained and the patient was medically cleared prior to discharge. Patient was seen and examined daily on the unit by psychiatry and also visited by counselor. Medications were adjusted. Patient tolerated medications well without side effects. Patient had improvement in his presenting psychiatric symptomatology. There was no evidence of any suicidality or homicidality on the inpatient unit. Patient remained in generally good behavioral control and was medication compliant. Charting indicates that the patient has been sleeping and eating well. He has been visible in the milieu but has participated little in unit activities. On the day of discharge: Patient seen and examined. Chart reviewed. Case discussed with nursing staff. Per nursing staff, patient has been no behavioral problem overnight. On my examination today, the patient reports that his mood is improved versus admission and he feels ready for discharge from the inpatient psychiatric unit. He denies any suicidal or homicidal ideation on direct questioning. He denies any audiovisual hallucinations, and I can elicit no delusional beliefs. He denies any side effects from medications. He has no physical complaints. He is future oriented and is still hopeful to eventually get into some sort of drug rehabilitation program eventually. I have encouraged him to pursue 12 step programming in the meantime. Weighing the acute, chronic, and protective factors and based on the available evidence, I finish mender to a reasonable degree of medical certainty that the patient is at low imminent risk of harm to self or others from a mental illness and his level of function is adequate for outpatient care. Patient has maximized benefit from this inpatient psychiatric hospital stay will be discharged today in stable condition with psychiatric follow-up as arranged by counselor. Patient is also to follow-up with primary care. I counseled the patient regarding warning signs for need to return to the psychiatric emergency room as part of the general safety plan. Results Blood Pressure 108 / 73 Vital Signs Date Time Temp Pulse Resp B/P Pulse Ox O2 Delivery O2 Flow Rate FiO2 01/06/17 06:00 97.8 59 18 108/73 96 Item Value Date Time White Blood Count 6.1 TH/MM3 12/31/16 0528 Hemoglobin 13.6 GM/DL 12/31/16 0528 Platelet Count 270 TH/MM3 12/31/16 0528 Sodium Level 139 MEQ/L 12/31/16 0528 Potassium Level 3.7 MEQ/L 12/31/16 0528 Chloride Level 102 MEQ/L 12/31/16 0528 Carbon Dioxide Level 29.0 MEQ/L 12/31/16 0528 Blood Urea Nitrogen 10 MG/DL 12/31/16 0528 Creatinine 1.00 MG/DL 12/31/16 0528 Hemoglobin A1c 5.8 % 12/31/16 0528 Aspartate Amino Transf (AST/SGOT) 44 U/L H 12/29/16 1810 Alanine Aminotransferase (ALT/SGPT) 54 U/L 12/29/16 1810 Alkaline Phosphatase 70 U/L 12/29/16 1810 Urine Cocaine Screen POS H 12/29/16 1820 Summary of Procedures None done Imaging Last Impressions Chest X-Ray 12/31/16 0000 Signed Impressions: Service Date/Time: December 14:28 - CONCLUSION: No acute cardiopulmonary abnormality is identified. Soham Aguilar MD Pending results at discharge: No Medications # of Antipsychotic meds at D/C: 1 Approp Antipsych med options 1 - Minimum of three failed multiple trials of monotherapy. 2 - Documented plan to taper to monotherapy due to previous use of multiple meds OR cross-taper in progress at D/C. 3 - Documentation of augmentation of Clozapine. 4 - Justification other than those listed in allowable values 1-3, document here : Discharge Discharge Date: Jan 06, 2017 Discharge Diagnosis: (1) Adjustment disorder Diagnosis: Principal (resolved) ICD Code: F43.20 (2) Drug abuse and dependence Diagnosis: Secondary (counseled to quit) ICD Code: F19.20 GAF on discharge is 60 Mental Status Exam at Disch Patient is casually dressed. He is well groomed and certainly maintaining basic hygiene. He is awake and alert and oriented 3. No evidence of delirium. No abnormal motor movements noted. Steady gait and station. Speech is within normal limits for rate, tone and volume. Language and fund of knowledge seem average. Mood is reportedly improved versus admission and affect is somewhat more full and reactive. Thought process linear. No loosening of association. No evident delusions. Denies audiovisual hallucinations. Denies suicidal or homicidal ideation. Insight and judgment are fair. Pt Condition on Discharge: Stable Discharge Disposition: Discharge Home Discharge Instructions Diet Instructions: As Tolerated, No Restrictions Activities you can perform: Weight Bearing as Matti Scheduled Appointment: Carlos A Souza Appointment Date: Jan 11, 2017 Appointment Time: 7:30am New Medications: Amlodipine (Norvasc) 5 Mg Tab 5 MG PO DAILY Blood Pressure Management Days 15 Ref 1 TAB Amoxicillin-Clavulanate (Augmentin) 500-125 mg Tab 500 MG PO Q12HR Antibiotic Days 4 Ref 0 TAB Aripiprazole (Aripiprazole) 5 Mg Tab 5 MG PO BID Mental Health Days 15 Ref 1 TAB Atorvastatin (Lipitor) 10 Mg Tab 10 MG PO HS Cholesterol Management Days 15 Ref 1 TAB Bupropion HCl ER 12 HR (Wellbutrin SR 12 HR) 150 Mg Tab 150 MG PO BID Mental Health Days 15 Ref 1 TAB Dorzolamide-Timolol Opth Drops (Cosopt Opth Drops) 22.3-6.8 Mg/Ml Soln 1 DROP EACH EYE Q12HR Eyedrops Days 15 Ref 1 ML Lisinopril (Lisinopril) 10 Mg Tab 10 MG PO DAILY Blood Pressure Management Days 15 Ref 1 TAB Discontinued Medications: Amlodipine (Amlodipine) 10 Mg Tab 10 MG PO DAILY Blood Pressure Management #30 Ref 0 TAB Lisinopril (Lisinopril) 20 Mg Tab 20 MG PO DAILY #30 Ref 0 TAB Discharge Time <= 30 minutes Discharge/Advance Care Plan Health Problems: (1) Adjustment disorder (2) Drug abuse and dependence Goals to promote your health * To prevent worsening of your condition and complications * To maintain your health at the optimal level Directions to meet your goals Take your medications as prescribed Follow your dietary instruction Follow activity as directed Keep your appointments as scheduled Take your immunizations and boosters as scheduled If your symptoms worsen call your PCP, if no PCP go to Urgent Care Center or Emergency Room For 17/05 questions related to your inpatient stay or results of tests pending at discharge, please contact Dr. Jose Cowart at Smoking is Dangerous to Your Health. Avoid second hand smoking Problem Qualifiers (1) Depression: (2) Adjustment disorder: Qualified Code: F43.21 - Adjustment disorder with depressed mood Jose Cowart MD Jan 06, 2017 12:18
== END 2017-01-06 15:50 | disposition home or self-care (01) | DRG 885 ==
LOC: NEPA 16:28 → NEDA 12-30 10:50 → H260 12-30 13:15
PROVIDERS: ADMIT Psychiatry & Neurology Psychiatry; ATTEND Psychiatry & Neurology Psychiatry
DX: F33.9 Major depressive disorder, recurrent, unspecified (principal); R45.851 Suicidal ideations; R45.850 Homicidal ideations; F14.24 Cocaine dependence with cocaine-induced mood disorder; H40.9 Unspecified glaucoma; F12.20 Cannabis dependence, uncomplicated; F10.10 Alcohol abuse, uncomplicated; F60.7 Dependent personality disorder; R63.4 Abnormal weight loss; J32.9 Chronic sinusitis, unspecified; I10 Essential (primary) hypertension; E78.5 Hyperlipidemia, unspecified; R05 Cough; F43.20 Adjustment disorder, unspecified; F17.210 Nicotine dependence, cigarettes, uncomplicated; Z59.0 Homelessness; Z68.27 Body mass index [BMI] 27.0-27.9, adult; Z76.5 Malingerer [conscious simulation]; Z91.14 Patient's other noncompliance with medication regimen; Z91.5 Personal history of self-harm
CPT/HCPCS: 71010; 80048; 80053; 80061; 80307; 83036; 83735; 84100; 85025; 99284